=== PATIENT | female | born 1985 | race Caucasian/White ===

== ENCOUNTER 2022-05-07 00:46 | Emergency (ER) | payer BC ==
[2022-05-07 01:05] VITALS: BP 125/88; PULSE 95; RESP 20; TEMP 97.6; BMI 34.7
[2022-05-07] MEDS ORDERED: PANTOPRAZOLE 20 MG TABLET PO ONE ×2 (01:36→01:44)
[2022-05-07] MEDS ORDERED: MAG HYDROX/AL HYDROX/SIMETH 30 ML UNIT-DOSE CUP PO ONE (01:36)
[2022-05-07] MEDS ORDERED: MAG HYDROX/AL HYDROX/SIMETH 30 ML UNIT-DOSE CUP ONE (01:44)
== END 2022-05-07 02:32 | disposition home or self-care (01) ==
LOC: JER 00:46
DX: R10.13 Epigastric pain (principal)
CPT/HCPCS: 93005; 93010; 99283-25